=== PATIENT | female | born 1930 | race Caucasian/White ===

== ENCOUNTER 2017-10-08 00:41 | Emergency (ER) | payer MEDICARE, OTHER ==
[~2017-10-08] VITALS: Ht 152.4 cm; Wt 56.7 kg
[2017-10-08] MEDS ORDERED: SYNTHROID88 MCG PO (01:19)
[2017-10-08] MEDS ORDERED: LISINOPRIL10 MG PO (01:19)
[2017-10-08] MEDS ORDERED: METOPROLOL SUCC25 MG PO (01:19)
[2017-10-08] MEDS ORDERED: NAMENDA10 MG PO (01:19)
[2017-10-08] MEDS ORDERED: ARICEPT5 MG PO (01:19)
[2017-10-08] MEDS ORDERED: BENAZEPRIL HCL10 MG PO (01:19)
[2017-10-08] MEDS ORDERED: TETANUS/DIPHTHERIA TOX ADULT 0.5 ML SYR IM ONE (01:30)
== END 2017-10-08 02:30 | disposition home or self-care (01) ==
LOC: FSED 00:41
PROC: 0HQEXZZ Repair Left Lower Arm Skin, External Approach (ICD-10-PCS; principal; 2017-10-08)
DX: S00.03XA Contusion of scalp, initial encounter (principal); S51.812A Laceration without foreign body of left forearm, initial encounter; W18.2XXA Fall in (into) shower or empty bathtub, initial encounter; Y93.E1 Activity, personal bathing and showering; Y92.002 Bathroom of unspecified non-institutional (private) residence as the place of occurrence of the external cause; F03.90 Unspecified dementia, unspecified severity, without behavioral disturbance, psychotic disturbance, mood disturbance, and anxiety; E07.9 Disorder of thyroid, unspecified
CPT/HCPCS: 70450; 72125; 90471; 90714; 99284